=== PATIENT | female | born 1970 | race Caucasian/White ===

== ENCOUNTER 2017-07-11 18:47 | Emergency (ER) | payer OTHER, BC ==
[~2017-07-11 18:47] MED LIST: ASPI-1441 PO; CALC500T86 PO; CITA-155 PO; FOLIC ACID; IBU800 PO; LOR5/325 PO; MET2 PO; MULT-885 PO; PROMETRIUM
[2017-07-11] MEDS ORDERED: BUPR-472 PO (18:51)
[2017-07-11 18:52] VITALS: BP 130/91
--- NOTE | 2017-07-11 18:52 | ER Report ---
History and Physical Time Seen By MD: 18:52 HPI/ROS CHIEF COMPLAINT: Squirrel bite HISTORY OF PRESENT ILLNESS: This is a 46-year-old female who presents to the emergency department for a small bite to her left thumb. 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 Patient states she did reach down to remove the squirrel from the dumpster with gloved hands and the squirrel was able to turn around and bite her on the pad of her left thumb at which time it did draw blood through the glove. The patient states that this squirrel looked healthy and did run off and climbed up a tree. Patient states after this she irrigated wound and was instructed to come to the emergency department for further evaluation. Patient denies any other injuries, no nausea, vomiting, aches or chills. Allergies: Coded Allergies: No Known Allergies (Verified Allergy, Mild, 10/12/12) Home Meds Reported Medications Bupropion Hcl (WELLBUTRIN XL) 150 Mg Tab.er.24h, 150 MG PO QDAY, TAB 07/11/17 Multivitamin (DAILY VITAMIN) 1 Each Tablet, 1 EACH PO 10/12/12 Citalopram Hydrobromide (CELEXA) 10 Mg Tablet, 20 MG PO QDAY 10/12/12 Past Medical/Surgical History Patient has a past medical and surgical history of depression. Reviewed Nurses Notes: Yes Hx Smoking: Yes Exposure to Second Hand Smoke?: No Hx Substance Use Disorder: No Hx Alcohol Use: Yes (occ) Constitutional Vital Sign - Last 24 Hours 07/11/17 18:52 Temp 98.8 Pulse 90 Resp 20 B/P (MAP) 130/91 Pulse Ox 96 O2 Delivery Room Air Physical Exam General appearance: Alert no distress. Respiratory: Chest is non tender, lungs are clear to auscultation. Cardiac: Regular rate and rhythm. Integument: Small puncture wound to the pad of the left thumb, small amount of blood noted, no other deformities or obvious concerns. DIFFERENTIAL DIAGNOSIS: After history and physical exam differential diagnosis was considered for animal bite. Medical Decision Making ED Course/Re-evaluation ED Course The patient was admitted to room. A history physical were obtained. Differential diagnoses were considered. After discussing this with the patient' s eye did contact theBench control at which time they did refer me to Dr. Springer who is the state infectious disease doctor. I did speak with him directly and he said that there is a very low risk for rabies secondary to squirrel bites as well as a low likelihood of infection secondary to squirrel bites. I did discuss this with the patient and told her that the likelihood is very low for rabies and infection. At this time we elected to not proceed with rabies prophylaxis or antibiotics. I did update the patient's tetanus. Patient was instructed to keep an eye on the wound monitor for signs of infection as well as potential rabies signs and symptoms which time return to the emergency department immediately. Patient agreed with the plan of care and was discharged home. The wound was also irrigated while in the emergency department and cared with antibiotic ointment and a Band-Aid. Decision to Disposition Date: Jul 11, 2017 Decision to Disposition Time: 19:19 Depart Departure Latest Vital Signs Vital Signs Date Time Temp Pulse Resp B/P (MAP) Pulse Ox O2 Delivery O2 Flow Rate FiO2 07/11/17 18:52 98.8 90 20 130/91 96 Room Air Impression: Primary Impression: Wound due to squirrel bite Condition: Improved Disposition: HOME OR SELF-CARE Referrals: ISABELLE MOORE MD (PCP) Patient Instructions: Acute Wound Care (ED), Animal Bite (ED) Additional Instructions: Drink plenty of fluids. Get plenty of rest. Monitor for signs of infection, if anything concerning please follow-up with the emergency department or your primary care provider. If you if any other concerns about rabies, have any fevers, severe muscle aches or pains return to the emergency department immediately. Return to the emergency department for any other concerns we have. RICH GRACE SYRUP [employer] Jul 11, 2017 18:52
[2017-07-11] MEDS ORDERED: DIPHTH/TETANUS/ACEL. PERTUSSIS IM ONLY ONE (19:00)
== END 2017-07-11 19:33 | disposition home or self-care (01) ==
LOC: ER 18:49
DX: S61.052A Open bite of left thumb without damage to nail, initial encounter (principal); W53.21XA Bitten by squirrel, initial encounter
CPT/HCPCS: 90471; 90715; 99283